=== PATIENT | female | born 1995 | race Caucasian/White ===

== ENCOUNTER 2020-03-16 08:49 | Emergency (ER) | payer OTHER ==
[~2020-03-16] VITALS: Ht 160 cm; Wt 66.0 kg
[2020-03-16] MEDS ORDERED: ONDANSETRON ODT 4 MG ONE (09:17)
[2020-03-16] MEDS ORDERED: HYDROcodone/APAP 5/325 TABLET ONE (09:17)
[2020-03-16] MEDS ORDERED: ONDANSETRON ODT 8 MG PO ONE (09:30)
[2020-03-16] MEDS ORDERED: HYDROcodone/APAP 5/325 TABLET PO ONE (09:30)
--- NOTE | 2020-03-16 10:15 | NUR ---
PT PRESENTS TO ED WITH C/O RIGHT SIDED BREAST ABCESS, INCREASING IN PAIN AND REDNESS. PT STATES SHE HAS APPT TO HAVE ABCESS ASSESSED BY SPECIALIST DR. MORGAN TOMORROW BUT STATES WORSENING SYMPTOMS HAD HER CONCERNED. PT AWAKE, ALERT AND ORIENTED. RESPS EVEN AND UNLABORED. PT MEDICATED PER EMAR, DECLINES ZOFRAN. US CALLED, TECH STATES PT IS NEXT IN QUE. PT AND MOTHER UPDATED WITH POC.
--- NOTE | 2020-03-16 10:46 | NUR ---
all results back, chart up for recheck. awaiting MD and dispo.
[2020-03-16] MEDS ORDERED: AMPICILLIN/SULBACTAM 3 GM in SODIUM CHLORIDE 0.9% 100 ML IV ONE (11:30)
[2020-03-16] MEDS ORDERED: SODIUM CHLORIDE 0.9% 1,000ML IVBOLUS ONE (11:30)
[2020-03-16] MEDS ORDERED: SODIUM CHLORIDE FLUSH 10ML SYR IVF ONE (11:30)
--- NOTE | 2020-03-16 11:43 | NUR ---
PER MD MACIAS, PT DOES NOT NEED IV ABX PRIOR TO IV ABX. KEVIN WALTON NOTIFIED PT REPORTS NO PAIN RELIEF FROM [place], ANTICIPATING ORDER FOR MORPHINE.
[2020-03-16] MEDS ORDERED: MORPHINE SULFATE 4 MG/ML, 1ML ONE (11:49)
[2020-03-16] MEDS ORDERED: ONDANSETRON 2MG/ML, 2ML ONE (11:49)
[2020-03-16] MEDS ORDERED: morphine SULFATE 10 MG/ML, 1ML IVPush ONE (12:00)
[2020-03-16] MEDS ORDERED: ONDANSETRON 2MG/ML, 2ML IVPush ONE (12:00)
[2020-03-16] MEDS ORDERED: LIDOCAINE 1%, 10ML ONE ×2 (12:34→13:12)
--- NOTE | 2020-03-16 12:39 | NUR ---
IR CALLED, PER TECH PT IS TO BE COLLECTED SHORTLY.
[2020-03-16 12:42] VITALS: BP 105/64
--- NOTE | 2020-03-16 12:45 | NUR ---
Beryl sloan in [facility] - 03/16/20 at 1325 by ALESSIA PT TO IR.
--- NOTE | 2020-03-16 12:53 | NUR ---
PT A&O, RESPS EVEN AND UNLABORED, IVF AND IV ABX INFUSING VIA DIALAFLOW. PT REPORTS PAIN HAS NOT IMPROVED S/P MORPHINE, EDSTEPHANIE WALTON NOTIFIED. NO FURTHER ORDERS RECEIVED.
--- NOTE | 2020-03-16 12:55 | NUR ---
PT TO IR
[2020-03-16] MEDS ORDERED: FENTANYL PF 100 MCG/2ML ONE (13:15)
--- NOTE | 2020-03-16 13:25 | NUR ---
PT REMAINS IN IR.
--- NOTE | 2020-03-16 13:49 | NUR ---
REPORT FROM [facility]. PT CONTINUES IN IR AT THIS TIME.
--- NOTE | 2020-03-16 13:55 | NUR ---
Pt was given 50mcg of fentanyl @1320 for pain control, Buddy Cruz drain placed.
--- NOTE | 2020-03-16 14:01 | NUR ---
PT RETURNED TO ROOM. IR ABSCESS SAMPLE SENT. UP TO RESTROOM WITH NO ASSISTANCE NECESSARY AND BACK. CALL LIGHT IN REACH.
== END 2020-03-16 14:12 | disposition home or self-care (01) ==
LOC: ED 09:50
DX: N61.1 Abscess of the breast and nipple (principal); Z90.49 Acquired absence of other specified parts of digestive tract
CPT/HCPCS: 10030; 75989; 76882; 76942; 87070; 87075; 87205; 96365; 96366; 96375; 99285; J0295; J2270; J2405; J3010; J3490; J7030; 87077; 87147

== ENCOUNTER 2020-03-20 05:13 | Day surgery (SDC) | payer OTHER ==
[~2020-03-20] VITALS: Ht 158.8 cm; Wt 65.4 kg
[2020-03-20] MEDS ORDERED: LACTATED RINGERS 1,000 ML IV SCH (05:57)
[2020-03-20] MEDS ORDERED: CHLORHEXIDINE 15 ML UDC MM ONE (06:00)
[2020-03-20 06:07] LABS: HCG UR SG 1.025 (1.003-1.030)
[2020-03-20 06:17] VITALS: BP 107/68
[2020-03-20] MEDS ORDERED: SULF1TAB24 PO (06:17)
[2020-03-20] MEDS ORDERED: AMOX1TAB64 PO (06:17)
[2020-03-20] MEDS ORDERED: EPINEPHRINE 1 MG/ML, 1ML ONE (06:31)
[2020-03-20] MEDS ORDERED: BUPIVACAINE/PF 0.5% ONE (06:31)
[2020-03-20] MEDS ORDERED: MIDAZOLAM 1 MG/ML, 2ML ONE (06:40)
[2020-03-20] MEDS ORDERED: FENTANYL PF 100 MCG/2ML ONE ×2 (06:40→07:19)
[2020-03-20] MEDS ORDERED: PROPOFOL 10 MG/ML, 20ML ONE (06:41)
[2020-03-20] MEDS ORDERED: LIDOCAINE-MPF 2% ,5ML ONE (06:41)
[2020-03-20] MEDS ORDERED: FENTANYL PF 100 MCG/2ML IV PRN (07:00)
[2020-03-20] MEDS ORDERED: ONDANSETRON 2MG/ML, 2ML IVPush PRN (07:00)
[2020-03-20] MEDS ORDERED: hydrALAzine 20 MG/ML, 1ML IV PRN (07:00)
[2020-03-20] MEDS ORDERED: ACETAMINOPHEN 325 MG TABLET PO PRN (07:00)
[2020-03-20] MEDS ORDERED: MEPERIDINE/PF 25MG/0.5ML IVPush PRN (07:00)
[2020-03-20] MEDS ORDERED: EPHEDRINE 50 MG/ML, 1ML IVPush PRN (07:00)
[2020-03-20] MEDS ORDERED: LABETALOL 5MG/ML, 20ML IV PRN (07:00)
[2020-03-20] MEDS ORDERED: HYDROmorphone 1 MG/ML, 1ML INJ IVPush PRN (07:00)
[2020-03-20] MEDS ORDERED: PROMETHAZINE 25 MG/ML, 1ML IVPush PRN (07:00)
[2020-03-20] MEDS ORDERED: KETOROLAC 30 MG/1 ML ONE (07:05)
[2020-03-20] MEDS ORDERED: DEXAMETHASONE 4 MG/ML, 1ML ONE ×2 (07:05)
[2020-03-20] MEDS ORDERED: CEFAZOLIN 1,000 MG ONE ×2 (07:15)
[2020-03-20] MEDS ORDERED: ACETAMINOPHEN 650 MG/20.3 ML UDC ONE (07:44)
[2020-03-20] MEDS ORDERED: OXYcodone 5 MG/5 ML ORAL.SOL UDC ONE (07:45)
[2020-03-20] MEDS ORDERED: MEPERIDINE/PF 25MG/ML,1ML ONE (07:45)
[2020-03-20] MEDS: OXYcodone 5 MG/5 ML ORAL.SOL UDC PO PRN ×2 (07:48→08:27)
== END 2020-03-20 08:55 | disposition home or self-care (01) ==
LOC: OUT 05:13
PROVIDERS: ATTEND Surgery
DX: N61.1 Abscess of the breast and nipple (principal); Z11.59 Encounter for screening for other viral diseases; N64.1 Fat necrosis of breast; F17.210 Nicotine dependence, cigarettes, uncomplicated; F12.90 Cannabis use, unspecified, uncomplicated; Z79.899 Other long term (current) drug therapy; Z80.3 Family history of malignant neoplasm of breast; Z79.2 Long term (current) use of antibiotics
CPT/HCPCS: 19020; 19101; 81025; 87635; 88305; 88342; J0171; J0690; J1100; J1885; J2175; J2250; J2704; J3010; J7120